=== PATIENT | female | born 1970 | race Caucasian/White ===

== ENCOUNTER 2017-07-04 10:07 | Day surgery (SDC) | payer OTHER ==
[2017-07-02 12:24] VITALS: BP 113/78
[2017-07-02 12:28] LABS: HEMATOCRIT 40.9 % (34.6-47.8); HEMOGLOBIN 13.8 g/dL (11.7-16.4); WHITE BLOOD COUNT 6.8 x10^3/uL (3.4-10)
[2017-07-02 12:48] LABS: ASPARTATE AMINO TRANSFERASE 28 U/L (15-37); BLOOD UREA NITROGEN 12 mg/dL (7-18)
[~2017-07-04] VITALS: Ht 170.2 cm; Wt 106.0 kg
[~2017-07-04 10:07] MED LIST: AMOX1TAB64 PO; USTE90DI INJ; [UNRECOGNIZED DRUG - CODE] RC
[2017-07-04 10:41] VITALS: BP 113/78
[2017-07-04 10:57] LABS: HCG UR LOT HCG7030192
[2017-07-04] MEDS ORDERED: LACTATED RINGERS 1,000 ML IV SCH (11:02)
[2017-07-04 11:14] LABS: HCG UR OBC PASS
[2017-07-04] MEDS ORDERED: BUPIVACAINE/PF 0.5% ONE (12:00)
[2017-07-04] MEDS ORDERED: SUCCINYLCHOLINE 20 MG/ML, 10ML ONE (12:03)
[2017-07-04] MEDS ORDERED: PROPOFOL 10 MG/ML, 20ML ONE (12:03)
[2017-07-04] MEDS ORDERED: ROCURONIUM 10 MG/ML,10ML ONE (12:03)
[2017-07-04] MEDS ORDERED: DEXAMETHASONE 4 MG/ML, 1ML ONE (12:04)
[2017-07-04] MEDS ORDERED: FENTANYL PF 100 MCG/2ML ONE ×2 (12:04→13:20)
[2017-07-04] MEDS ORDERED: ONDANSETRON 2MG/ML, 2ML ONE (12:04)
[2017-07-04] MEDS ORDERED: MIDAZOLAM 1 MG/ML, 2ML ONE (12:04)
[2017-07-04] MEDS ORDERED: CEFAZOLIN 1,000 MG ONE ×2 (12:24)
[2017-07-04] MEDS ORDERED: METOPROLOL 1 MG/ML, 5ML IV PRN (12:30)
[2017-07-04] MEDS ORDERED: hydrALAzine 20 MG/ML, 1ML IV PRN (12:30)
[2017-07-04] MEDS ORDERED: EPHEDRINE 50 MG/ML, 1ML IVPush PRN (12:30)
[2017-07-04] MEDS ORDERED: HYDROcodone/APAP 7.5-325MG/15ML UDC PO PRN (12:30)
[2017-07-04] MEDS ORDERED: ACETAMINOPHEN 325 MG TABLET PO PRN (12:30)
[2017-07-04] MEDS ORDERED: PROMETHAZINE 25 MG/ML, 1ML IV PRN (12:30)
[2017-07-04] MEDS ORDERED: ALBUTEROL SULFATE 2.5 MG/3 ML NPPB PRN (12:30)
[2017-07-04] MEDS ORDERED: MEPERIDINE/PF 25MG/0.5ML IVPush PRN (12:30)
[2017-07-04] MEDS ORDERED: KETOROLAC 30 MG/1 ML IV PRN (12:30)
[2017-07-04] MEDS ORDERED: METOCLOPRAMIDE 5 MG/ML, 2ML IV PRN (12:30)
[2017-07-04] MEDS ORDERED: HYDROmorphone 1 MG/ML, 1ML IV PRN (12:30)
[2017-07-04] MEDS ORDERED: OXYcodone 5 MG/5 ML ORAL.SOL UDC PO PRN (12:30)
[2017-07-04] MEDS ORDERED: LABETALOL 5MG/ML, 20ML IV PRN (12:30)
[2017-07-04] MEDS ORDERED: ONDANSETRON 2MG/ML, 2ML IVPush PRN (12:30)
[2017-07-04] MEDS ORDERED: ACETAMINOPHEN 650 MG/20.3 ML UDC ONE (13:20)
[2017-07-04] MEDS ORDERED: OXYcodone 5 MG/5 ML ORAL.SOL UDC ONE (13:20)
[2017-07-04] MEDS: FENTANYL PF 100 MCG/2ML IV PRN ×5 (13:28→14:09)
== END 2017-07-04 16:05 ==
LOC: OUT 10:07
PROVIDERS: ATTEND Surgery
DX: K61.1 Rectal abscess (principal); Z98.890 Other specified postprocedural states
CPT/HCPCS: 36415; 46040; 80053; 81025; 85025; 88304; 93005; J0330; J0690; J1100; J2250; J2405; J2704; J3010; J3490; J7120